=== PATIENT | female | born 2000 | race Caucasian/White ===

== ENCOUNTER 2024-03-23 04:14 | Inpatient (IN) | payer BC ==
[2024-03-23] MEDS ORDERED: Sodium Chloride 0.9% 10 ML Syringe FLUSH PRN (04:40)
[2024-03-23] MEDS ORDERED: Nalbuphine 10 MG/1 ML Vial IVPUSH PRN (04:40)
[2024-03-23] MEDS ORDERED: Ondansetron 4 MG/2 ML SDV IVPUSH PRN (04:40)
[2024-03-23] MEDS ORDERED: Lidocaine 1% 50 ML MDV INJECT PRN (04:40)
[2024-03-23] MEDS ORDERED: Oxytocin/0.9 % Sodium Chloride 30 UNIT/500 ML BAG IV SCH (04:45)
[2024-03-23 05:29] LABS: BASOPHILS ABSOLUTE AUTO 0.1 K/mm3 (0.0-0.2); BASOPHILS PERCENT AUTO 0.4 % (0.0-1.0); EOSINOPHILS ABSOLUTE AUTO 0.2 K/mm3 (0.0-0.4); EOSINOPHILS PERCENT AUTO 1.4 % (0.0-6.0); HEMATOCRIT 40.4 % (37.0-47.0); HEMOGLOBIN 13.9 gm/dl (12.0-16.0); IMMATURE GRAN ABSOLUTE AUTO 0.14 K/mm3 (0.00-0.05); IMMATURE GRAN PERCENT AUTO 0.9 % (0.0-0.4); LYMPHOCYTES ABSOLUTE AUTO 3.2 K/mm3 (1.0-4.8); LYMPHOCYTES PERCENT AUTO 19.9 % (24.0-44.0); MEAN CORPUSCULAR HEMOGLOBIN 30.8 pg (28.0-32.0); MEAN CORPUSCULAR HGB CONC 34.4 g/dl (32.0-36.0); MEAN CORPUSCULAR VOLUME 89.6 fl (83.0-99.0); MEAN PLATELET VOLUME 9.6 fl (9.4-12.3); MONOCYTES ABSOLUTE AUTO 0.9 K/mm3 (0.0-0.8); MONOCYTES PERCENT AUTO 5.7 % (0.0-8.0); NEUTROPHILS ABSOLUTE AUTO 11.5 K/mm3 (1.8-7.7); NEUTROPHILS PERCENT AUTO 71.7 % (41.0-71.0); PLATELET COUNT,PLT 288 K/mm3 (150-400); RED BLOOD CELL COUNT 4.51 M/mm3 (4.10-5.30)
[2024-03-23] MEDS ORDERED: diphenhydrAMINE 50 MG/ML SDV IVPUSH PRN (08:56)
[2024-03-23] MEDS ORDERED: ePHEDrine 50 MG/ML SDV IVPUSH PRN (08:56)
[2024-03-23] MEDS: Lactated Ringers 1,000 ML IV SCH (11:37)
[2024-03-23] MEDS: fentaNYL 100 MCG/2 ML SDV EPIDUR PRN (11:50)
[2024-03-23] MEDS: Bupivacaine/fentaNYL/NS 100 ML Bag EPIDUR PRN (11:50)
[2024-03-23] MEDS: Oxytocin/0.9 % Sodium Chloride 30 UNIT/500 ML BAG IV SCH (15:04)
[2024-03-23] MEDS ORDERED: Docusate Sodium 100 MG Cap PO PRN (17:55)
[2024-03-23] MEDS ORDERED: Acetaminophen 325 MG Tab PO PRN (17:55)
[2024-03-23] MEDS: Ibuprofen 800 MG Tab PO SCH (19:41)
[2024-03-23] MEDS: Witch Hazel Medicated Pads 40/Jar TOP PRN (19:43)
[2024-03-23] MEDS: Benzocaine/Menthol 20%-0.5% Spray 78 GM Cannister TOP PRN (19:43)
[2024-03-24] MEDS: Ibuprofen 800 MG Tab PO SCH (02:11)
[2024-03-25] MEDS: Measles, Mumps & Rubella Vaccine 0.5 ML SDV SUBCUT ONE (08:21)
[2024-03-25] MEDS: Ibuprofen 800 MG Tab PO SCH (10:19)
== END 2024-03-25 12:08 | disposition home or self-care (01) | DRG 560 ==
LOC: JD.OBCHECK 04:14 → JD.OB 04:25 → JD.OBCHECK 04:40 → JD.OB 04:45 → OBSVTOIN 17:21 → JD.OB 17:22
PROVIDERS: ADMIT Obstetrics & Gynecology; ATTEND Obstetrics & Gynecology
PROC: 10E0XZZ Delivery of Products of Conception, External Approach (ICD-10-PCS; principal; 2024-03-23)
PROC: 0UQMXZZ Repair Vulva, External Approach (ICD-10-PCS; 2024-03-23)
PROC: 3E0R3BZ Introduction of Anesthetic Agent into Spinal Canal, Percutaneous Approach (ICD-10-PCS; 2024-03-23)
PROC: 30233S1 Transfusion of Nonautologous Globulin into Peripheral Vein, Percutaneous Approach (ICD-10-PCS; 2024-03-23)
PROC: 00HU33Z Insertion of Infusion Device into Spinal Canal, Percutaneous Approach (ICD-10-PCS; 2024-03-23)
DX: O42.02 Full-term premature rupture of membranes, onset of labor within 24 hours of rupture (principal); Z37.0 Single live birth; O36.0930 Maternal care for other rhesus isoimmunization, third trimester, not applicable or unspecified; Z3A.39 39 weeks gestation of pregnancy; Z67.91 Unspecified blood type, Rh negative
CPT/HCPCS: 01967; 36415; 51702; 59025; 59409; 85025; 85461; 86592; 86850; 86900; 86901; 90471; 90707; A9270-GY; J2791; J3010; J3490; J7120; J7999